=== PATIENT | female | born 1985 | race Asian ===

== ENCOUNTER 2024-11-26 23:37 | Inpatient (IN) | payer OTHER ==
[~2024-11-26] VITALS: Ht 162.6 cm; Wt 104.0 kg
[2024-11-27] MEDS ORDERED: HALOPERIDOL 5 MG TABLET PO PRN (00:15)
[2024-11-27] MEDS ORDERED: OLANZapine 5 MG RAPDIS TABLET PO PRN (01:30)
[2024-11-27] MEDS ORDERED: ACETAMINOPHEN 325 MG TABLET PO PRN (11:00)
[2024-11-27] MEDS ORDERED: GuaiFENesin/D-METHORPHAN [SUGAR-FREE] 200-20MG/10 ML SYRUP UDCUP PO PRN (11:00)
[2024-11-27] MEDS ORDERED: MAGNESIUM HYDROXIDE SUSPENSION 30 ML UDCUP PO PRN (11:00)
[2024-11-27] MEDS ORDERED: TUBERCULIN, PURIFIED PROTEIN DERIVATIVE 5 TU/0.1 ML SYRINGE ID ONE (11:00)
[2024-11-27] MEDS ORDERED: HydrOXYzine PAMOATE 50 MG CAPSULE PO PRN (11:00)
[2024-11-27] MEDS ORDERED: PROMETHAZINE HCL 25 MG TABLET PO PRN (11:00)
[2024-11-27] MEDS ORDERED: MAG HYDROX/ALUMINUM HYD/SIMETH ES 30 ML SUSPENSION UDCUP PO PRN (11:00)
[2024-11-27] MEDS ORDERED: LOPERAMIDE HCL 2 MG CAPSULE PO PRN (11:00)
[2024-11-27 13:17] VITALS: BP 138/82; PULSE 82; RESP 18; TEMP 98.8; O2SAT 99
[2024-11-27] MEDS: THIAMINE 100 MG TABLET PO SCH (16:25)
[2024-11-27] MEDS: OLANZapine 5 MG RAPDIS TABLET PO SCH (20:31)
[2024-11-27] MEDS: LITHIUM CARBONATE 300 MG CAPSULE PO SCH (20:31)
[2024-11-27] MEDS: DIVALPROEX SODIUM 500 MG ER TABLET PO SCH (20:31)
[2024-11-27] MEDS: MELATONIN 5 MG TABLET PO SCH (20:31)
[2024-11-27] MEDS: ZOLPIDEM TARTRATE 10 MG TABLET PO PRN (20:33)
[2024-11-27] MEDS: POTASSIUM CHLORIDE 20 MEQ ER TABLET PO ONE (20:38)
[2024-11-27 22:11] VITALS: RESP 18; TEMP 97.4
[2024-11-27] MEDS ORDERED: DiphenhydrAMINE HCL 50 MG/ML VIAL ONE (22:28)
[2024-11-27] MEDS ORDERED: LORazepam 2 MG/ML VIAL ONE (22:28)
[2024-11-27] MEDS ORDERED: HALOPERIDOL LACTATE 5 MG/ML VIAL ONE (22:29)
[2024-11-27] MEDS: DiphenhydrAMINE HCL 50 MG/ML VIAL IM ONE (22:58)
[2024-11-27] MEDS: HALOPERIDOL LACTATE 5 MG/ML VIAL IM ONE (22:58)
[2024-11-27] MEDS: LORazepam 2 MG/ML VIAL IM ONE (22:58)
[2024-11-28 08:17] VITALS: RESP 16
[2024-11-28] MEDS: FOLIC ACID 1 MG TABLET PO SCH (08:52)
[2024-11-28] MEDS: MULTIVITAMINS WITH MINERALS, THERAPEUTIC TABLET PO SCH (08:52)
[2024-11-28 09:15] LABS: HEMOGLOBIN A1C 5.4 % (3.8-5.6)
[2024-11-28 09:19] LABS: ANION GAP 10 mmol/L (8-16); CALCIUM, TOTAL 9.4 mg/dL (8.8-10.5); CARBON DIOXIDE 27 mmol/L (22-29); CHLORIDE 103 mmol/L (98-107); CHOL/HDL RATIO 3.2 (3.9-5.7); CHOLESTEROL 187 mg/dL (131-200); CREATININE 0.89 mg/dL (0.60-1.30); FREE T4 (FREE THYROXINE) 1.33 ng/dL (0.76-1.46); GLOMERULAR FILTR. RATE CALC > 60 mL/min (>60); GLUCOSE,RANDOM 80 mg/dL (70-110); HDL CHOLESTEROL 58 mg/dL (40-60); LDL CHOL (CALC.) 107 mg/dL (0-130); POTASSIUM 3.5 mmol/L (3.5-5.1); SODIUM SERUM 140 mmol/L (136-145); THYROID STIMULATING HORMONE 3.43 uIU/mL (0.36-3.74); TRIGLYCERIDES 108 mg/dL (15-150); UREA NITROGEN, BLOOD 11 mg/dL (7-18)
[2024-11-28 20:15] VITALS: BP 156/100; PULSE 90; RESP 18; TEMP 97.4; O2SAT 98
[2024-11-29] MEDS ORDERED: DiphenhydrAMINE HCL 50 MG/ML VIAL ONE (02:33)
[2024-11-29] MEDS: DiphenhydrAMINE HCL 50 MG/ML VIAL IM ONE ×2 (02:46→17:21)
[2024-11-29 08:21] VITALS: RESP 16
[2024-11-29] MEDS: BENZTROPINE MESYLATE 2 MG TABLET PO ONE (13:00)
[2024-11-29] MEDS: BENZTROPINE MESYLATE 2 MG TABLET PO SCH (13:00)
[2024-11-29] MEDS ORDERED: ChlorproMAZINE HCL 50 MG/2 ML AMP ONE (16:48)
[2024-11-29] MEDS ORDERED: LORazepam 2 MG/ML VIAL ONE (16:48)
[2024-11-29] MEDS: ChlorproMAZINE HCL 50 MG/2 ML AMP IM ONE (17:21)
[2024-11-29] MEDS: LORazepam 2 MG/ML VIAL IM ONE (17:21)
[2024-11-29 20:14] VITALS: BP 126/85; PULSE 94; RESP 18; TEMP 97.8; O2SAT 99
[2024-11-30] MEDS: LORazepam 2 MG TABLET PO PRN (07:43)
[2024-11-30 08:32] VITALS: BP 118/69; PULSE 82; RESP 16; TEMP 97.9; O2SAT 98
[2024-11-30 20:23] VITALS: BP 120/75; PULSE 89; RESP 18; TEMP 97.2; O2SAT 99
[2024-12-01 08:07] VITALS: BP 156/94; PULSE 108; RESP 17; TEMP 97.4; O2SAT 99
[2024-12-01 20:00] VITALS: BP 152/97; PULSE 98; RESP 18; TEMP 97.9; O2SAT 99
[2024-12-02 09:21] VITALS: BP 141/87; PULSE 84; RESP 16; TEMP 97.4; O2SAT 97
[2024-12-02 20:12] VITALS: BP 132/87; PULSE 92; RESP 18; TEMP 98.6; O2SAT 96
[2024-12-03 08:19] VITALS: BP 127/78; PULSE 79; RESP 16; TEMP 97.9; O2SAT 96
== END 2024-12-03 18:09 | disposition left against medical advice (07) | DRG 885 ==
LOC: EDBD → B3A 11-27 03:42
PROVIDERS: ADMIT Psychiatry & Neurology Psychiatry; ATTEND Psychiatry & Neurology Psychiatry
PROC: GZHZZZZ Group Psychotherapy (ICD-10-PCS; principal; 2024-11-27)
PROC: GZ58ZZZ Individual Psychotherapy, Cognitive-Behavioral (ICD-10-PCS; 2024-11-27)
PROC: GZ56ZZZ Individual Psychotherapy, Supportive (ICD-10-PCS; 2024-11-27)
DX: F31.64 Bipolar disorder, current episode mixed, severe, with psychotic features (principal); R45.851 Suicidal ideations; E66.9 Obesity, unspecified; F41.9 Anxiety disorder, unspecified; Z91.148 Patient's other noncompliance with medication regimen for other reason; Z91.199 Patient's noncompliance with other medical treatment and regimen due to unspecified reason; Z53.29 Procedure and treatment not carried out because of patient's decision for other reasons
CPT/HCPCS: 80048; 80061; 83036; 84439; 84443; 84703; 85025; 86592; 99285; G0480; J1200; J1630; J2060; J3230

== ENCOUNTER 2024-11-27 01:18 | Emergency (ER) | payer OTHER ==
[~2024-11-27] VITALS: Ht 162.6 cm; Wt 102.3 kg
[2024-11-27 02:04] LABS: BASOPHILS % (AUTO) 0.7 % (0.0-2.0); EOSINOPHILS % (AUTO) 0.2 % (1.0-6.0); HEMATOCRIT 39.6 % (36-46); HEMOGLOBIN 13.1 g/dL (12.0-16.0); LYMPHOCYTES % (AUTO) 18.7 % (22.0-44.0); MEAN CORPUSCULAR HEMOGLOBIN 29.4 pg (26.0-34.0); MEAN CORPUSCULAR HGB CONC 33.1 G/dL (31.0-37.0); MEAN CORPUSCULAR VOLUME 89 fL (80-100); MONOCYTES # (AUTO) 0.5 K/uL (0.1-1.0); MONOCYTES % (AUTO) 5.1 % (2.0-9.0); NEUTROPHILS % (AUTO) 75.3 % (40.0-70.0); PLATELET COUNT (AUTO) 432 K/uL (150-450); RED BLOOD CELL COUNT(AUTO) 4.46 MIL/uL (4.00-5.20); RED CELL DISTRIBUTION WIDTH 14.6 % (11.5-14.5); WHITE BLOOD COUNT (AUTO) 10.6 K/uL (4.5-11.0)
[2024-11-27 02:13] LABS: ANION GAP 8 mmol/L (8-16); CALCIUM, TOTAL 9.5 mg/dL (8.8-10.5); CARBON DIOXIDE 28 mmol/L (22-29); CHLORIDE 102 mmol/L (98-107); CREATININE 0.95 mg/dL (0.60-1.30); GLOMERULAR FILTR. RATE CALC > 60 mL/min (>60); GLUCOSE,RANDOM 132 mg/dL (70-110); POTASSIUM 3.3 mmol/L (3.5-5.1); SODIUM SERUM 138 mmol/L (136-145); UREA NITROGEN, BLOOD 12 mg/dL (7-18)
[2024-11-27 02:27] LABS: ALCOHOL, BLOOD (SERUM) < 3 mg/dL (0-10)
[2024-11-27] MEDS: POTASSIUM CHLORIDE 20 MEQ ER TABLET PO ONE (03:11)
[2024-11-27 03:26] LABS: COVID AG,FIA SOURCE NASAL SWAB
[2024-11-27 03:51] LABS: SARS-COV2 (COVID) ANTIGEN,FIA Negative (Negative)
[2024-11-27 08:26] VITALS: BP 128/79; PULSE 86; RESP 18; TEMP 98.1; O2SAT 97
== END 2024-11-27 08:43 ==
LOC: EDBD 01:18 → EMS 01:18
DX: R45.851 Suicidal ideations (principal); Z00.8 Encounter for other general examination; R44.0 Auditory hallucinations; Z20.822 Contact with and (suspected) exposure to COVID-19
CPT/HCPCS: 99285; 87426; 80048; 84703; 85025; 36415; G0480

== ENCOUNTER 2025-03-26 11:44 | Inpatient (IN) | payer OTHER ==
[~2025-03-26] VITALS: Ht 162.6 cm; Wt 98.0 kg
[2025-03-26] MEDS ORDERED: ZOLPIDEM TARTRATE 10 MG TABLET PO PRN (13:30)
[2025-03-26] MEDS ORDERED: LORazepam 2 MG/ML VIAL ONE (13:43)
[2025-03-26 14:41] LABS: GLUCOMETER DEV NAME(LOC) POC.BV; POC SARS-COV2 AG, FIA NEGATIVE (NEGATIVE)
[2025-03-26 16:00] VITALS: BP 160/101; PULSE 110; RESP 18; TEMP 97.5; O2SAT 98
[2025-03-26] MEDS: LORazepam 2 MG/ML VIAL IM ONE (16:06)
[2025-03-26 17:45] VITALS: BP 140/81; PULSE 89; RESP 16; TEMP 97.2; O2SAT 98
[2025-03-26 20:14] VITALS: BP 112/67; PULSE 89; RESP 18; TEMP 97.2; O2SAT 99
[2025-03-27] MEDS ORDERED: GuaiFENesin/D-METHORPHAN [SUGAR-FREE] 200-20MG/10 ML SYRUP UDCUP PO PRN (06:45)
[2025-03-27] MEDS ORDERED: LOPERAMIDE HCL 2 MG CAPSULE PO PRN (06:45)
[2025-03-27] MEDS ORDERED: MAG HYDROX/ALUMINUM HYD/SIMETH ES 30 ML SUSPENSION UDCUP PO PRN (06:45)
[2025-03-27] MEDS ORDERED: ALBUTEROL SULFATE HFA 90 MCG/PUFF 8 GM INHALER IH PRN (06:45)
[2025-03-27] MEDS ORDERED: DOCUSATE SODIUM 100 MG CAPSULE PO PRN (06:45)
[2025-03-27] MEDS ORDERED: MAGNESIUM HYDROXIDE SUSPENSION 30 ML UDCUP PO PRN (06:45)
[2025-03-27] MEDS ORDERED: IBUPROFEN 400 MG TABLET PO PRN (06:45)
[2025-03-27] MEDS ORDERED: NICOTINE 14 MG/24 HOUR PATCH TD PRN (06:45)
[2025-03-27] MEDS ORDERED: ONDANSETRON 4 MG TABLET PO PRN (06:45)
[2025-03-27] MEDS ORDERED: PETROLATUM,WHITE 28 GM JELLY TP PRN (06:45)
[2025-03-27] MEDS ORDERED: ACETAMINOPHEN 325 MG TABLET PO PRN (06:45)
[2025-03-27 08:19] VITALS: BP 111/87; PULSE 82; RESP 17; TEMP 98; O2SAT 96
[2025-03-27 08:28] LABS: PLATELET COUNT (AUTO) 355 K/uL (150-450); RED BLOOD CELL COUNT(AUTO) 4.41 MIL/uL (4.00-5.20); RED CELL DISTRIBUTION WIDTH 14.3 % (11.5-14.5); WHITE BLOOD COUNT (AUTO) 8.0 K/uL (4.5-11.0)
[2025-03-27 08:54] LABS: ASPARTATE AMINOTRANSFERASE 23 U/L (15-37); CALCIUM, TOTAL 8.9 mg/dL (8.8-10.5); CHOL/HDL RATIO 3.2 (3.9-5.7); CREATININE 0.71 mg/dL (0.60-1.30); GLOMERULAR FILTR. RATE CALC > 60 mL/min (>60); GLUCOSE,RANDOM 140 mg/dL (70-110); LDL CHOL (CALC.) 114 mg/dL (0-130); SODIUM SERUM 140 mmol/L (136-145); TOTAL PROTEIN, SERUM 7.2 g/dL (6.4-8.2); UREA NITROGEN, BLOOD 7 mg/dL (7-18)
[2025-03-27 20:16] VITALS: BP 129/93; PULSE 98; RESP 19; TEMP 97.8; O2SAT 99
[2025-03-28 08:17] VITALS: BP 109/75; PULSE 81; RESP 16; TEMP 97.8; O2SAT 96
[2025-03-28] MEDS: LOSARTAN POTASSIUM 25 MG TABLET PO SCH (09:06)
[2025-03-28 09:35] LABS: APPEARANCE,URINE CLEAR (CLEAR); GLUCOSE, URINE (UA) NEGATIVE (NEGATIVE); LEUKOCYTE ESTERASE ,URINE SMALL (NEGATIVE); NITRATE,URINE NEGATIVE (NEGATIVE); OCCULT BLOOD,URINE NEGATIVE (NEGATIVE); PH,URINE DRUG SCREEN 6.0 (5.0-8.0); SPECIFIC GRAVITIY, URINE 1.013 (1.003-1.030)
[2025-03-28 09:41] LABS: ALCOHOL, URINE DRUG SCREEN NEGATIVE (NEGATIVE); AMPHET/METH SCREEN,URINE NEGATIVE (NEGATIVE); BARBITURATE SCREEN, URINE NEGATIVE (NEGATIVE); CANNABINOID SCREEN,URINE NEGATIVE (NEGATIVE); COCAINE SCREEN,URINE NEGATIVE (NEGATIVE); METHADONE SCREEN, URINE NEGATIVE (NEGATIVE)
[2025-03-28 09:45] LABS: SQUAMOUS EPITHELIAL CELL,UR Many /LPF (None Seen)
[2025-03-28 09:51] LABS: CHOL/HDL RATIO 3.0 (3.9-5.7); LDL CHOL (CALC.) 101.0 mg/dL (0-130)
[2025-03-28 20:30] VITALS: BP 117/81; PULSE 82; RESP 17; TEMP 97.7; O2SAT 97
[2025-03-29 08:08] VITALS: BP 108/75; PULSE 81; RESP 17; TEMP 97; O2SAT 98
[2025-03-29] MEDS ORDERED: LOSA-417 PO (10:24)
[2025-03-29] MEDS ORDERED: LAMO-24 PO (10:24)
== END 2025-03-29 13:12 | disposition home or self-care (01) | DRG 885 ==
LOC: B3A 13:26
PROVIDERS: ADMIT Psychiatry & Neurology Child & Adolescent Psychiatry; ATTEND Psychiatry & Neurology Child & Adolescent Psychiatry
PROC: GZHZZZZ Group Psychotherapy (ICD-10-PCS; principal; 2025-03-27)
DX: F31.2 Bipolar disorder, current episode manic severe with psychotic features (principal); E66.9 Obesity, unspecified; R00.0 Tachycardia, unspecified; Z20.822 Contact with and (suspected) exposure to COVID-19; I10 Essential (primary) hypertension; Z79.899 Other long term (current) drug therapy; Z88.0 Allergy status to penicillin; Z88.2 Allergy status to sulfonamides; Z68.37 Body mass index [BMI] 37.0-37.9, adult
CPT/HCPCS: 80053; 80061; 80307; 81001; 83036; 84436; 84443; 84703; 85025; J1200; J1630; J2060